=== PATIENT | male | born 1990 | race Two or more races ===

== ENCOUNTER 2024-07-13 18:40 | Emergency (ER) | payer OTHER ==
[2024-07-13 18:50] VITALS: BP 120/81; PULSE 86; RESP 18; TEMP 98.3; BMI 39.1
[2024-07-13] MEDS ORDERED: KETOROLAC TROMETHAMINE 30 MG/1 ML VIAL ONE (20:53)
[2024-07-13] MEDS ORDERED: ACETAMINOPHEN 500 MG TABLET (FP) ONE (20:53)
[2024-07-13] MEDS: ACETAMINOPHEN 500 MG TABLET (FP) PO ONE (21:00)
[2024-07-13] MEDS: KETOROLAC TROMETHAMINE 30 MG/1 ML VIAL IM ONE (21:01)
== END 2024-07-13 21:02 | disposition home or self-care (01) ==
LOC: JER 18:40 → JERFT 18:40
PROC: 3E0233Z Introduction of Anti-inflammatory into Muscle, Percutaneous Approach (ICD-10-PCS; principal; 2024-07-13)
DX: S09.93XA Unspecified injury of face, initial encounter (principal); W01.0XXA Fall on same level from slipping, tripping and stumbling without subsequent striking against object, initial encounter; Y99.0 Civilian activity done for income or pay
CPT/HCPCS: 99284-25